=== PATIENT | male | born 2005 | race Caucasian/White ===

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

== ENCOUNTER 2024-08-28 12:34 | Emergency (ER) | payer SELFPAY ==
[2024-08-28 12:38] VITALS: BP 117/82; PULSE 120; RESP 18; TEMP 36.9; O2SAT 94
--- NOTE | 2024-08-28 12:56 | ED.GENADUL_ITS ---
Discharge Plan Disposition Patient Disposition: Home Condition: Stable Discharge Details Clinical Impression: Contusion of hand Primary Care Provider: Solange Coreas ED Provider: Analy Christensen Home Meds and New Rx's Prescriptions: No Action naloxone 4 mg/actuation spray,non-aerosol 4 mg intranasal Q2M PRNQty: 2 0RF Rx Instructions: spray 1 dose into ONE nostril; alternate nostrils w each dose until help arrives Discharge Instructions Instructions: Minor Contusion ED Additional Instructions: You were seen in the emergency department today for evaluation of hand injury. In our department a full physical examination performed, and had x-rays that did not show any broken bones or dislocations. You have bad bruising and an abrasion of your thumb which was bandaged. Please continue to keep this area clean and dry, use [id number] antibiotic ointment to prevent infection, and use ice, Tylenol, and ibuprofen as needed for pain or swelling. Please follow-up with your primary care provider in the next few days to discuss this visit and any symptoms that change, worsen, or persist. Thank you for allowing us to be part of your care. HPI General Mode of arrival: ambulatory . Date/Time Provider Initiated Documentation: 08/28/24 12:43 . Limitations to Documentation: no limitations . Information obtained by: patient, police and old records reviewed . HPI Narrative: HPI: This is a 19-year-old male patient without significant past medical history who is presenting for evaluation of hand injury. The patient is in police custody, states that last night he punched something with his hand, does have a history of alcohol use, states he also scraped his right thumb on the ground. States that he is right-hand dominant, did not sustain any other injuries, states his tetanus has been updated within the last 10 years. He reports that he is not experiencing any mental health concerns today and has the ability to follow-up with sobriety resources in [place] where he resides. Exam: Gen: Awake and alert, in no apparent distress HEENT: Non-icteric sclera Neck: Supple Lungs: No apparent respiratory distress, normal respiratory effort. CV: Appears well perfused, strong distal pulses. The patient has swelling over the right MCPs 3 through 5 without deformity, rotation of the fingers with fl exion, or overlying skin breaks. He does have an abrasion over the proximal phalanx of the right thumb, hemostatic. He has some mild swelling and bruising over the interphalangeal joint of the right thumb, has full range of motion without restriction and a full neurovascular examination distal to these injuries. He has no tenderness over the anatomical snuffbox. Abdomen: Non-distended MSK: Moves 4 extremities without apparent limitation in ROM Skin: Visualized skin without rashes, cyanosis. Neuro: Normal Gait, no obvious focal deficits or facial asymmetry. Speaks in full, clear sentences. Psych: Appropriate for situation. MDM: This is a 19-year-old male patient presenting for evaluation of a hand injury. My differential includes but is not limited to fracture, dislocation, contusion, abrasion. No neurovascular derangements appreciated, patient is otherwise in his normal state of health. At this time the patient declines medications for pain, we will obtain x-ray imaging of the affected thumb and hand. ED Course: I reviewed the patient's imaging, and note no osseous abnormalities such as fracture or dislocation, no foreign bodies or other actionable findings. I bandaged the abrasion and counseled the patient on wound management, ice and [id number] medications for pain. At this time, the patient has had a full medical evaluation and is safe for discharge to home. They are hemodynamically stable, ambulatory, and tolerating PO. They are understanding of the follow-up plan and return precautions. They left our facility without incident. Analy Christensen MD Related Data Home Medications ?Medication ?Instructions ?Recorded ?Confirmed naloxone 4 mg/actuation nasal spray 4 mg intranasal Q2M PRN #2 ea 03/06/22 Previous Rx's ?Medication ?Instructions ?Recorded naloxone 4 mg/actuation nasal spray 4 mg intranasal Q2M PRN #2 ea 03/06/22 Allergies Allergy/AdvReac Type Severity Reaction Status Date / Time haloperidol (From Haldol) AdvReac Severe Other (See Unverified 01/05/22 23:32 Comment) General Stated Complaint: Orthopedic EVANS: 4 Course Vital Signs Vital signs: Vital Signs Temperature 36.9 C 08/28/24 12:38 Pulse 120 H 08/28/24 12:38 Respiratory Rate 18 08/28/24 12:38 Blood Pressure 117/82 08/28/24 12:38 Pulse Oximetry 94 08/28/24 12:38 Temperature 36.9 C 08/28/24 12:38 Pulse 120 H 08/28/24 12:38 Respiratory Rate 18 08/28/24 12:38 Blood Pressure 117/82 08/28/24 12:38 Pulse Oximetry 94 08/28/24 12:38 Medical Decision Making Quality:SDOH Health Related Social Needs: No Data to Display PFSH All Active Problems (Updated 08/28/24 @ 13:36 by Analy Christensen MD) Contusion of hand (Acute) Medical History Alcohol abuse Surgical History No significant past surgical history Social History Smoking/Tobacco Use Status: Never Smoking risk assessment performed?: Yes Alcohol Intake: current Alcohol Intake frequency: 0-2 drinks per day Alcohol type: beer Substance use type: marijuana Do you feel safe at home: Yes Do you feel safe in your relationship?: Yes
--- NOTE | 2024-08-28 13:28 | DI.RAD_ITS ---
Exam(s) XR HAND RT COMPLETE XR THUMB RT EXAM: XR HAND RT COMPLETE and XR thumb RT CLINICAL HISTORY: punched a wall, MCP 3-5 swollen. TECHNIQUE: 2D digital imaging was performed of the right thumb and hand. Six images were obtained. AP, lateral and oblique views were obtained. COMPARISON: CR XR HAND RT COMPLETE from 11/28/2020 CR XR WRIST RT COMPLETE from 11/28/2020 FINDINGS: BONES: No acute fracture is present. No bony destructive lesion is seen. There is no change in the de formities of the head of the 2nd metacarpal and the base of the middle phalanx of the middle finger. JOINTS: No dislocation present. SOFT TISSUE: Normal. IMPRESSION: No acute fracture or dislocation. DATA REPOSITORY: RADIATION DOSE DELIVERED:
== END 2024-08-28 13:50 | disposition home or self-care (01) ==
LOC: ER 16:14
PROVIDERS: Emergency Provider Emergency Medicine; PCP Pediatrics
DX: S60.221A Contusion of right hand, initial encounter (principal); S60.311A Abrasion of right thumb, initial encounter; W22.01XA Walked into wall, initial encounter; Y93.89 Activity, other specified; Y92.89 Other specified places as the place of occurrence of the external cause
CPT/HCPCS: 99283; 73130; 73140

== ENCOUNTER 2025-03-28 17:56 | Emergency (ER) | payer SELFPAY ==
[2025-03-28 17:58] VITALS: BP 130/91; PULSE 85; RESP 92; TEMP 35.1; O2SAT 98
[2025-03-28 18:00] VITALS: PULSE 96; O2SAT 98
[2025-03-28 18:14] VITALS: RESP 16
--- NOTE | 2025-03-28 18:16 | ED.GENADUL_ITS ---
Discharge Plan Disposition Condition: Stable Discharge Details Chief Complaint: PsychEval Clinical Impression: Alcohol intoxication, Suicidal ideation Primary Care Provider: Unknown,Unknown ED Provider: Stoney Contreras Home Meds and New Rx's Prescriptions: No Action alprazolam [Xanax] 0.25 mg tablet 0.25 mg PO DAILY PRN buprenorphine-naloxone [Suboxone] 8-2 mg film 1 film sublingual DAILY HPI General Mode of arrival: ambulatory . Date/Time Provider Initiated Documentation: 03/28/25 18:08 . Limitations to Documentation: no limitations . Information obtained by: patient and police . History of Present Illness 19 year old M presents to the emergency department with the chief complaint of Alcohol intoxication and suicidal ideation, HPI Narrative: 19-year-old male presents with [facility] police for alcohol intoxication and attempted to harm himself, specifically freeze himself outside. He admits to daily alcohol, approximately 12 beers. He admits to some mild prior alcohol withdrawal symptoms treated with benzodiazepines but denies any hospitalization for severe withdrawals. Denies history of SI or psychiatric hospitalization. Denies significant past medical history. He tells me that his father committed suicide a few years ago and he has not coped well with that. He got into a verbal altercation with his mother this evening which prompted him to drink and she subsequently contacted the police. He has no acute medical concerns or complaints. He does admit to a history of snorting opiates, tells me he has been clean but cannot tell me exact duration, does take Suboxone. Denies recent illness or trauma. Related Data Home Medications Medication Instructions Recorded Confirmed alprazolam 0.25 mg tablet (Xanax) 0.25 mg PO DAILY PRN 03/28/25 03/28/25 buprenorphine 8 mg-naloxone 2 mg 1 film sublingual SHARIF LY 03/28/25 03/28/25 sublingual film (Suboxone) Allergies Allergy/AdvReac Type Severity Reaction Status Date / Time peanut Allergy Severe Anaphylaxis Verified 03/28/25 18:04 General Stated Complaint: PsychEval EVANS: 2 Review of Systems Constitutional Constitutional: Denies fatigue, Denies fever(s), Denies headache(s) and Denies weakness Eyes Eyes: Denies change in vision ENT Ears, Nose, Mouth, and Throat: Denies headache(s) and Denies neck pain Cardiovascular Cardiovascular: Denies chest pain and Denies dyspnea Respiratory Respiratory: Denies dyspnea Gastrointestinal Gastrointestinal: Denies abdominal pain, Denies nausea and Denies vomiting Musculoskeletal Musculoskeletal: Denies back pain, Denies neck pain, Denies numbness, Denies stiffness and Denies tingling Integumentary/Breasts Skin/Breast: Denies rash Neurologic Neurologic: Denies headache(s), Denies numbness, Denies tingling and Denies weakness Psychiatric Psychiatric: Reports anxiety, Reports depression, Denies homicidal ideation and Reports suicidal ideation Endocrine Endocrine: Denies fatigue Exam Const General: cooperative, healthy appearing, comfortable and no acute distress Orientation: alert, awake and oriented x3 Other: EtOH like substance on breath HENMT Head: normal to inspection, normocephalic and atraumatic Face and sinus: normal facial exam Mouth: moist mucous membranes Throat: posterior oropharynx normal Eyes General: appearance normal, both eyes and all related structures Alignment and Position: alignment normal Periorbital: periorbital findings normal Eyelids: eyelids normal Conjunctivae: conjunctivae normal Sclera: sclerae normal Cornea: corneas normal Pupils: PERRL EOM: EOM intact bilaterally Direct ophthalmoscopy: normal light reflex Neck Neck: normal visual inspection, full ROM, no meningeal signs, trachea midline and supple Resp Effort & Inspection: normal respiratory effort and able to speak in complete sentences Auscultation: clear to auscultation bilaterally Cardio Rate: regular rate Rhythm: regular rhythm GI Inspection: normal to inspection Palpation: soft, not firm, no guarding, not rigid and nontender Back/Spine/Pelvis Back: no CVA tenderness and No back tenderness Skin General skin exam: no rashes or lesions noted Neuro General: patient alert, patient awake, patient oriented x3, moves all extremities and no focal motor deficits Cranial Nerves: CN's II-XI intact bilaterally Cognition: normal cognition Speech: speech normal Gait: normal gait Motor: muscle tone normal throughout Sensory Exam: no sensory deficits noted Extrem General: normal to inspection, full ROM, capillary refill normal and normal gait Psych Appearance: grossly normal Mental Status: mental status grossly normal Course Vital Signs Vital signs: Vital Signs Temperature 35.1 C L 03/28/25 17:58 Pulse 85 03/28/25 17:58 Respiratory Rate 92 H 03/28/25 17:58 Blood Pressure 130/91 H 03/28/25 17:58 Pulse Oximetry 98 03/28/25 17:58 Temperature 35.1 C L 03/28/25 17:58 Pulse 85 03/28/25 17:58 Respiratory Rate 92 H 03/28/25 17:58 Blood Pressure 130/91 H 03/28/25 17:58 Pulse Oximetry 98 03/28/25 17:58 Pain Level 0 03/28/25 17:58 Medical Decision Making 19-year-old male, history of daily alcohol use, approximately 12 beers, smoker, history of snorting opiates, now on Suboxone, presents via state police for alcohol intoxication and SI. He got into an argument with his mother and went outside in the hopes to freeze himself. No recent illness or trauma. Denies prior hospitalization for alcohol withdrawal or mental health reasons. He tells me he is withdrawing from alcohol and is very persistent that he needs benzodiazepines. Clinically he appears well, nontoxic. Appears neurologically intact and clinically sober initial CIWA score is 3. Patient was given a nicotine patch. Was offered both Librium and Vistaril but he declined both. Will initiate a master sheet clerk health plan and food safety director. Will obtain routine screening laboratory values including a tox screen and alcohol level. Given he is clinically sober, will contact mental [facility] for a mental screening evaluati on. Laboratory values reveal no evidence of leukocytosis or anemia. Sodium 149, potassium 4.0 chloride 109 carbon dioxide 31.4 anion gap 8.5 creatinine 0.8 with a GFR of 128.63. Glucose 97. LFTs unremarkable. Lipase 25. TSH 125. Urinalysis negative. Tox screen negative. Alcohol 300. Patient witnessed ambulating steadily to the restroom. Tolerating p.o. intake without difficulty. Remains neurologically intact. No evidence of alcohol withdrawal. Awaiting mental health evaluation. Patient has been under my care for 4 hours without any evidence of withdrawal. Upon reevaluation patient was sleeping. Call placed to [facility] to see when evaluation would take place, awaiting phone call back. Case signed out to Dr. Berumen pending mental health evaluation and final disposition. This documentation was generated using [employer] system, please disregard any oddities of phrase or misspellings. Medical Records Medical records reviewed: No I reviewed the patient's medical records. Medical records narrative: No prior records Lab Data Lab results reviewed: Yes I reviewed the patient's lab results. Labs: Laboratory Tests Range/Units 03/28/25 03/28/25 18:20 18:55 WBC (4.4-10.8) 10^3/uL 7.75 RBC (4.36-5.78) 10^6/uL 5.21 Hgb (13.5-17.5) g/dL 15.6 Hct (40.0-50.0) % 46.9 MCV (80-95) fL 90 MCH (27.0-33.0) pg 29.9 MCHC (32.0-36.0) % 33.3 RDW (11.8-14.1) % 12.7 Plt Count (130-400) 10^3/uL 303 MPV (8.0-11.0) fL 9.5 Immature Gran % % 0.1 Neutrophils % % 54.1 Lymphocytes % % 40.1 Monocytes % % 4.8 Eosinophils % % 0.4 Basophils % % 0.5 Nucleated RBC % (0.0-0.3) % 0.0 Absolute Neutrophils (1.2-6.7) 10^3/uL 4.19 Absolute Lymphocytes (1.2-3.4) 10^3/uL 3.11 Absolute Monocytes (0.1-0.8) 10^3/uL 0.37 Absolute Eosinophils (0.0-0.7) 10^3/uL 0.03 Absolute Basophils (0.0-0.2) 10^3/uL 0.04 Sodium (136-145) mmol/L 149 H Potassium (3.5-5.1) mmol/L 4.0 Chloride (98-107) mmol/L 109 H Carbon Dioxide (20.0-31.0) mmol/L 31.5 H Anion Gap (3-11) mmol/L 8.5 BUN (9-23) mg/dL 8 L Creatinine (0.73-1.18) mg/dL 0.8 Est GFR (CKD-EPI 2020) (mL/min/1.73m2) 128.63 Glucose (74-106) mg/dL 97 Calcium (8.3-10.6) mg/dL 9.1 Total Bilirubin (0.2-1.2) mg/dL 0.30 AST (<34) U/L 21 ALT (10-49) U/L 21 Alkaline Phosphatase (46-116) U/L 92 Total Protein (5.7-8.2) g/dL 8.0 Albumin (3.4-5.0) g/dL 5.0 Lipase (<53) U/L 25 TSH (0.55-4.78) uIU/mL 1.25 Urine Color (Yellow) Yellow Urine Clarity (Clear) Clear Urine pH (5-8) 6.0 Ur Specific Tina (1.005-1.025) <= 1.005 Urine Protein (Neg-Trace) mg/dL Negative Urine Ketones (Negative) mg/dL Negative Urine Blood (Negative) Negative Urine Nitrite (Negative) Negative Urine Bilirubin (Negative) Negative Urine Urobilinogen (Up to 0.2) mg/dL 0.2 Ur Leukocyte Esterase (Negative) Negative Urine Glucose (Negative) mg/dL Negative Urine Opiates Screen (Negative) Negative Urine Methadone Screen (Negative) Negative Ur Barbiturates Screen (Negative) Negative Ur Tricyclics Screen (Negative) Negative Ur Amphetamines Screen (Negative) Negative U Benzodiazepines Scrn (Negative) Negative Urine Cocaine Screen (Negative) Negative U Cannabinoids Screen (Negative) Negative Ethyl Alcohol (<3) mg/dL 300.0 H PFSH All Active Problems (Updated 03/28/25 @ 22:18 by MARTÍN Limon) Suicidal ideation (Acute) Alcohol intoxication (Acute) Social History Smoking risk assessment performed?: No Drug use: Rarely Substance use type: crack/cocaine and sedatives
[2025-03-28 18:20] VITALS: PULSE 82; O2SAT 94
[2025-03-28 18:30] VITALS: PULSE 80; RESP 13
[2025-03-28 18:35] LABS: Glucose Negative (Negative)
[2025-03-28 18:56] LABS: Cannabinoids THC Negative (Negative)
[2025-03-28 19:07] LABS: Abs Immature Grans 0.01 10^3/uL (0.0-0.06); HCT 46.9 % (40.0-50.0); HGB 15.6 g/dL (13.5-17.5); Immature Grans % 0.1 %; MCH 29.9 pg (27.0-33.0); MCHC 33.3 % (32.0-36.0); MCV 90 fL (80-95); MPV 9.5 fL (8.0-11.0); Platelet Count 303 10^3/uL (130-400); RBC 5.21 10^6/uL (4.36-5.78); RDW 12.7 % (11.8-14.1); RDW-SD 41.9 fL; WBC 7.75 10^3/uL (4.4-10.8)
[2025-03-28] MEDS: Nicotine 21 MG/24 HR PATCH TD (19:19)
[2025-03-28 19:21] LABS: Lipase 25 U/L (<53)
[2025-03-28 19:24] LABS: ALT 21 U/L (10-49); AST 21 U/L (<34); Albumin 5.0 g/dL (3.4-5.0); Alkaline Phosphatase 92 U/L (46-116); Anion Gap 8.5 mmol/L (3-11); BUN 8 mg/dL (9-23); Bilirubin, Total 0.30 mg/dL (0.2-1.2); CO2 31.5 mmol/L (20.0-31.0); Calcium 9.1 mg/dL (8.3-10.6); Chloride 109 mmol/L (98-107); Glucose 97 mg/dL (74-106); Potassium 4.0 mmol/L (3.5-5.1); Sodium 149 mmol/L (136-145); Total Protein 8.0 g/dL (5.7-8.2)
[2025-03-28 19:28] LABS: TSH (W/Ref FT4) 1.25 uIU/mL (0.55-4.78)
--- NOTE | 2025-03-28 19:39 | NUR.NOTE ---
This RN clinically evaluating pt for CIWA. Pt from afar not visibly shaking, happy and calm talking to 1:1 sitter. Upon RN entering room, pt begins shaking arms and stating he is starting to withdrawal from ETOH. Provider made aware. Multiple attempts to medicate pt. Pt refusing any medication that is not a Benzo. Pt states he will only take a benzo at this time. Provider made aware.
[2025-03-29] MEDS: Ondansetron O.D.T. 4 MG TABEF PO
--- NOTE | 2025-03-29 05:04 | ED.PROG_ITS ---
Date of service: 03/28/25 Time of Service: 22:30 Medical Decision Making This patient was signed out to me. Please see previous notes for H&P and initial eval. In brief, 19yo M presented via police for SI with plan to freeze to ; had [facility] outside [facility] to accomplish this. Intoxicated on arrival, serum ETOH 300. Voluntary at this time; [facility] contacted with plan for eval in the morning when clinically sober. CIWA overnight 3, 4. Offered librium again for ETOH withdrawal ppx; pt continues to refused and states he will only take ativan. No indication for rapid acting benzodiazapene at this time. Will be signed out to honey hobson as above. Discharge Plan Disposition Condition: Stable Discharge Details Chief Complaint: PsychEval Clinical Impression: Alcohol intoxication, Suicidal ideation Primary Care Provider: Unknown,Unknown ED Provider: Venessa Berumen Home Meds and New Rx's Prescriptions: No Action alprazolam [Xanax] 0.25 mg tablet 0.25 mg PO DAILY PRN buprenorphine-naloxone [Suboxone] 8-2 mg film 1 film sublingual DAILY
--- NOTE | 2025-03-29 08:34 | CMPROGNOTE_ITS ---
Date of service: 03/29/25 Time of Service: 08:34 Care Management Progress Note Progress Note Text Progress Note Text: CM discussed Kishore's plan of care with [facility] Tessy and [facility] staff. He engaged in a safety plan with [facility] and was discharged home. Safety plan was in place. He will be transported via his grandmother. Status Status: Interim Social Determinants of Health Screening Will the Patient Participate in the Screening?: Declined to provide
--- NOTE | 2025-03-29 08:34 | PDOC.CMPRO ---
Date of service: 03/29/25 Time of Service: 08:34 Care Management Progress Note Progress Note Text Progress Note Text: CM discussed Kishore's plan of care with [facility] Tessy and [facility] staff. He engaged in a safety plan with [facility] and was discharged home. Safety plan was in place. He will be transported via his grandmother. Status Status: Interim Social Determinants of Health Screening Will the Patient Participate in the Screening?: Declined to provide
--- NOTE | 2025-03-29 08:35 | CMSP_ITS ---
Date of service: 03/29/25 Time of Service: 08:35 Care Management Safety Plan Status Status: Voluntary Reason for Wait Reason for Wait: Assessment/Screening Safety Plan Safety Plan: VOLUNTARY FOR INPATIENT PSYCHIATRIC STABILIZATION. Patient is appropriate in all interactions since arriving at [facility]; Pt has demonstrated appropriate coping and communication skills, has articulated his or her needs and concerns and is fully engaged during staff interactions. Safety plan has been established with patient, and care team, to adhere to patient goals, identify restrictions based on behavioral status, address nutrition, and determine allowed personal belongings, tools for hygiene and personal care. Determine level of activity including ambulation, level of superv ision, visitors, and determine privileges based on behaviors and level of engagement by pt. VOLUNTARY SAFETY PLAN: 1. Will remain on suicide precautions, in paper clothes. 2. Will remain in Zone B under direct supervision of one-on-one staff at all times provided by [employer]; NINA, GLASSWARE MAKER supervisor looping. 3. May have paper cups, plates, finger foods as well as a cardboard spoon with which to eat meals. 4. Follow [facility] Management of the Admitted Behavioral Health Patient policy. 5. Shower available in Zone B without restriction. 6. Personal belongings-soft items permitted at RN discretion. 7. Visitors- supportive visitors, at RN discretion. 8. Activities: soft cart items approved per RN discretion. 9. Bathroom available in Zone B without restriction. 10. Phone: limited to [facility] cordless phone at RN discretion. Due to VOLUNTARY status, if patient wishes to leave [facility], staff will contact [facility] Crisis Screener ([phone]) and Facilities Custodian ([phone]) as soon as possible. In the event of elopement, notify [facility] Police ([phone]). Patient is currently voluntarily at [facility] and seeking inpatient admission when a bed becomes available. [facility] [employer] Service Consultant will continue seeking placement. Please contact the Facilities Custodian ([phone]) and [facility] Automotive Service Consultant ([phone]) for any needed changes in the Safety Plan. Safety plan has been provided to interdepartmental care team.
--- NOTE | 2025-03-29 08:35 | PDOC.CMSAFE ---
Date of service: 03/29/25 Time of Service: 08:35 Care Management Safety Plan Status Status: Voluntary Reason for Wait Reason for Wait: Assessment/Screening Safety Plan Safety Plan: VOLUNTARY FOR INPATIENT PSYCHIATRIC STABILIZATION. Patient is appropriate in all interactions since arriving at [facility]; Pt has demonstrated appropriate coping and communication skills, has articulated his or her needs and concerns and is fully engaged during staff interactions. Safety plan has been established with patient, and care team, to adhere to patient goals, identify restrictions based on behavioral status, address nutrition, and determine allowed personal belongings, tools for hygiene and personal care. Determine level of activity including ambulation, level of supervision, visitors, and determine privileges based on behaviors and level of engagement by pt. VOLUNTARY SAFETY PLAN: 1. Will remain on suicide precautions, in paper clothes. 2. Will remain in Zone B under direct supervision of one-on-one staff at all times provided by [employer]; NINA, [employer]OUL[employer] IC[employer] structural steel trades worker. 3. May have paper cups, plates, finger foods as well as a cardboard spoon with which to eat meals. 4. Follow [facility] Management of the Admitted Behavioral Health Patient policy. 5. Shower available in Zone B without restriction. 6. Personal belongings-soft items permitted at RN discretion. 7. Visitors- supportive visitors, at RN discretion. 8. Activities: soft cart items approved per RN discretion. 9. Bathroom available in Zone B without restriction. 10. Phone: limited to [facility] cordless phone at RN discretion. Due to VOLUNTARY status, if patient wishes to leave [facility], staff will contact [facility] Crisis Screener ([phone]) and Bottom Bleacher ([phone]) as soon as possible. In the event of elopement, notify [facility] Police ([phone]). Patient is currently voluntarily at [facility] and seeking inpatient admission when a bed becomes available. [facility] Frontline [employer] Specialists will continue seeking placement. Please contact the Bottom Bleacher ([phone]) and [facility] Epic Cadence Specialists ([phone]) for any needed changes in the Safety Plan. Safety plan has been provided to interdepartmental care team.
--- NOTE | 2025-03-29 09:48 | W.EDPROG ---
Date of service: 03/29/25 Time of Service: 09:48 Medical Decision Making 730 --care signed out by Dr. Berumen, please see her documentation regarding initial ED presentation course. Plan at signout to follow-up on crisis evaluation. 945 --patient clinically sober on reassessment. Patient was seen by crisis screener, evaluated, no imminent threat to self or others. Safety plan established with the patient. Recommend discharge with safety plan. 1000 --I evaluated the patient. No threat to self or others. Patient is regretful. He has good insight and is forward thinking. Discharge plan reviewed with the patient. Discharge Plan Disposition Patient Disposition: Home Condition: Stable Discharge Details Clinical Impression: Alcohol intoxication, Suicidal ideation Primary Care Provider: Unknown,Unknown ED Provider: Bret Mario Home Meds and New Rx's Prescriptions: Continued naloxone 4 mg/actuation spray,non-aerosol 4 mg intranasal Q2M PRNQty: 2 0RF Rx Instructions: spray 1 dose into ONE nostril; alternate nostrils w each dose until help arrives alprazolam [Xanax] 0.25 mg tablet 0.25 mg PO DAILY PRN buprenorphine-naloxone [Suboxone] 8-2 mg film 1 film sublingual DAILY Discharge Instructions Instructions: Depression, Adult ED, Alcohol Intoxication ED Additional Instructions: Please stop abusing alcohol. Please follow-up with your primary care physician. Please follow-up with [facility] according to establish safety plan. Return to the emergency department immediately for any worsening or new concerning symptoms. You can always return to the emergency department if you need a safe place to go. Stand Alone Forms: Portal Information Referrals: [facility] [Outside]
--- NOTE | 2025-03-29 17:30 | PDOC.MHCN ---
Date of service: 03/29/25 Time of Service: 09:11 PHQ-9 Over the last 2 weeks, how often have you been bothered by any of the following problems? 1. Little interest or pleasure in doing things: not at all 2. Feeling down, depressed, or hopeless: not at all 3. Trouble falling or staying asleep, or sleeping too much: not at all 4. Feeling tired or having little energy: not at all 5. Poor appetite or overeating: not at all 6. Feeling bad about yourself - or that you are a failure or have let yourself and your family down: not at all 7. Trouble concentrating on things, such as reading the newspaper or watching television: not at all 8. Moving or speaking so slowly that other people could have noticed? - Or the opposite - being so fidgety or restless that you have been moving around a lot more than usual: not at all 9. Thoughts that you would be better off or of hurting yourself in some way: not at all Total score: 0 If you checked off any problems, how difficult have these problems made it for you to do your work, take care of things at home, or get along with other people?: not difficult at all PHQ-9 Results: Negative Source: Developed by Drs. Kishore Dhaliwal, Carla Mendoza, Hung Patel and colleagues, with an educational onel from [employer]. Suicide Severity Rate CSSRS Have you wished you were or wished you could go to sleep and not wake up?: No Have you actually had any thoughts of killing yourself?: No CSSRS3 Have you ever done anything, started to do anything or prepared to do anything to end your life?: No CSSRS4 Was this within the past three months?: No Screening Score Total Score: 0 Screening: Negative Mental Health Emergency Note Release HS release signed:: Yes Reason for Visit The client is known to [facility] in a limited capacity, however per chart review there are limited services. Per the clients report the client was hospitalized in August of 2024 at [facility] involuntarily for 4 days after stealing a firearm. Last night the client arrived at [facility] ED via [place] [facility] intoxicated and making suicidal statements. The client is now medically cleared and sober. This investigative writer meets with the client face to face at [facility] ED for initial assessment. In the last 2 weeks has the pt presented for ES prior to today?: No Client Information Client is: New Well Housed: Yes Non Suicidal Self Injury Current: No History: No Safety Risk/Harm to Self or Others Current Ideation to Harm Self or Others: No CALM/Risk Level Does risk to harm exist?: No Duty to warn indicated: No Asssessment/Mental Status Appearance: Unremarkable Attitude: Cooperative Behavior: Unremarkable Speech: Normal Affect: Cogruent with mood Mood: Anxious Hallucinations: No Delusions: No Attention: Unremarkable Perception: Not impaired Orientation: Fully orientated Memory: Intact Insight: Good Judgement: Good Neurovegetative Symptoms Sleep: No change Appetitie: No change Interests: No change Energy: No change Libido: Not applicable Substance Use: ETOH dependence Do you use nicotine?: Yes Have you used substances in the last 7 days?: yes, Alcohol- 4 buzz balls 3-4x a week Additional Issues: Assaultive/Threatening Behavior: No Medical Concerns: No Client engaged in active self harm w/weapon: No Threatening to run away: No Child reported abuse/neglect: No Voluntarily presenting for services: Yes Domestic violence is a concern: No Extreme Psychosis or extreme behavior is present: No Impression The client is a 19 year old male that resides in [place], [place] with his mother and sister. 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 All screening tools are completed and all under represented categories are honored during this assessment. Client demonstrates good eye contact throughout the assessment, indicating engagement. He reports that he is not suicidal but mentions making stupid comments when he is under the influence. Client states there is no change in his appetite and sleep patterns. He recognizes that he has trouble with substance use, yet he expresses a desire to not use and intends to discuss this with this investigative writer. Additionally, the client denies experiencing any hallucinations or delusions. Throughout the assessment, he appears goal-directed, indicating a focus on improvement. Resources Reosurces reviewed and given:: Community therapist and [facility] Plan/Disposition Recommended Disposition: [facility] Services (In person post hospital follow-up) [facility] Services: Other and Community resources ([facility]). Plan: The client will be discharged home on safety plan. The client will call [facility] to make appointment with therapist. The client will come to [address] [place] [address] office at 12p on Sunday 04/01. The client is provided with [facility] 24 hour phone number as well as [phone] and information on [address]. Person reported agreement to plan: Yes Reports/communication Outcome discussed with: ED/Personnel (Huddle completed with [facility] staff)
--- NOTE | 2025-03-31 16:29 | NVRH.SBSAF_ITS ---
Date of service: 03/29/25 Time of Service: 09:00 Thony-Fam Safety Plan Step 1: Warning signs 1.: When intoxicated I say things that I don't mean 2.: Unable to control emotions when intoxicated Step 2: Internal Coping Strategies Things I can do to take my mind off my problems without contacting another person: 1.: Hanging out with family 2.: Going on drive with my grandmother to distract myself 3.: Going for a walk in [place] with [place] dogs Step 3: People and Social Settings People and social settings that provide distraction: 1. Name: Family 2. Name: My grandmother 2. Contact Information: [phone]: [place] 4. Place: The dogs Step 4: Assistance People whom I can ask for help during a crisis: 1. Name: GrandmotherFrances Zaidi 1. Contact Information: [phone] 2. Name: Kylie Davies 2. Contact Information: [phone] 3. Name: [facility] 3. Contact Information: [phone] Step 5: Professionals/Agencies Professionals or agencies I can contact during a crisis: 1. Clinician/Agency Name: [facility] 1. 1. Emergency Contact: 2. Clinician/Agency Name: National crisis line 2. Phone: [phone] 2. Emergency Contact: [phone] 3. Local Emergency Department: [address] [place] [address] 4. [facility] ([facility]) Mobile Crisis Suicide Prevention Lifeline Phone: [phone] Step 6: Making the Environment Safer Making the environment safer (plan for lethal means safety): 1.: Staying away from alcohol Copy to Patient/Family Provided a copy of the Thony Brown Safety Plan to Patient/Family: Yes Thony Otto Copyright Lli[employer] Safety Planning Intervention The Thony-Fam Safety Plan is copyrighted by Little Bhandari, PhD & Roman Otto, PhD (2020). Individual use of the Thony-Fam Safety Plan form is permitted. Written permission from the authors is required for any changes to this form or use of this form in the electronic medical record. Additional resources are available from www.suicidesafetyplan.com.
== END 2025-03-29 10:19 | disposition home or self-care (01) ==
PROVIDERS: Physician Assistant; Emergency Provider Student in an Organized Health Care Education/Training Program
DX: R45.851 Suicidal ideations (principal); F10.120 Alcohol abuse with intoxication, uncomplicated; F11.91 Opioid use, unspecified, in remission; Y90.8 Blood alcohol level of 240 mg/100 ml or more
CPT/HCPCS: 00123; 80053; 80307; 83690; 96127; 99284; 80320; 81003; 84443; 85025